=== PATIENT | female | born 1945 | race Caucasian/White ===

== ENCOUNTER 2018-06-27 05:13 | Emergency (ER) | payer MEDICARE ==
[2018-06-27] MEDS ORDERED: METHYLPREDNISOLONE PF 125MG/VIAL IVP ONE (05:21)
[2018-06-27] MEDS ORDERED: IPRATROPIUM/ALBUTEROL (0.5MG/3MG) NEB INH ONE (05:21)
--- NOTE | 2018-06-27 05:28 | Emergency Department Record ---
History of Present Illness - General Chief Complaint: Shortness of breath Stated Complaint: PALPITATIONS Time Seen by Provider: 06/27/18 05:21 Source: Patient, Family Mode of Arrival: Ambulatory Limitations: No limitations - History of Present Illness Initial Comments: 72 yo female presents with shortness of breath and a feeling of heart racing for the last 5 hours. He has a history of COPD, 2-3 PPD smoker, CAD, aneurysm. She denies any chest pain. No edema of the legs. She has a cough without any sputum. She states she has felt the symptoms since about midnight. She denies any other recent changes in her health. She is normally on 3 LNC at home. NO fevers. She felt a little warm at times but not fever. Her PCP is Jie Dickson in the [facility]. Dr Joy is her funeral professional. She has an appointment tomorrow. MD Complaint: Shortness of breath -: Hour(s) (5) Severity: Moderate Quality: Other Consistency: Constant Improves With: Nothing Worsens With: Coughing, Exertion Known History Of: COPD Context: Other Associated Symptoms: Denies other symptoms Treatments Prior to Arrival: None - Related Data Previous Rx's Medication Instructions Recorded Prednisone [Prednisone 20Mg] 20 mg PO BID #10 tab 06/27/18 Allergies Allergy/AdvReac Type Severity Reaction Status Date / Time No Known Drug Allergies Allergy Unverified 03/30/18 14:47 Review of Systems Constitutional: Reports: Chills, Weakness. Denies: Fever Eyes: Denies: Eye discharge, Vision change ENT: Denies: Congestion, Throat pain Respiratory: Reports: Dyspnea Cardiovascular: Reports: Palpitations. Denies: Chest pain, Dyspnea on exertion , Edema, Syncope Endocrine: Denies: Fatigue Gastrointestinal: Denies: Abdominal pain, Diarrhea, Nausea, Vomiting Genitourinary: Denies: Dysuria, Urgency Musculoskeletal: Denies: Arthralgia, Back pain, Myalgia Skin: Denies: Bruising, Change in color, Rash Neurological: Denies: Headache Psychiatric: Denies: Anxiety Hematological/Lymphatic: Denies: Anemia, Blood Clots, Easy bleeding, Easy bruising, Swollen glands Past Medical History - SOCIAL HISTORY Smoking Status: Current every day smoker - RESPIRATORY Hx Respiratory Disorders: Yes Hx Asthma: Yes - CARDIOVASCULAR Hx Cardio Disorders: Yes Hx Hypertension: Yes - NEURO Hx Neuro Disorders: Yes Hx Dizziness: Yes Hx Headaches: Yes - GI Hx GI Disorders: No - Hx Genitourinary Disorders: No - ENDOCRINE Hx Endocrine Disorders: No - MUSCULOSKELETAL Hx Musculoskeletal Disorders: No - PSYCH Hx Psych Problems: No - HEMATOLOGY/ONCOLOGY Hx Hematology/Oncology Disorders: Yes Hx Cancer: Yes Hx Radiation Therapy: Yes Family Medical History Hx Cancer: Father, Mother Hx Heart Disease: Mother Hx Resp Disorders: Brother/Sister Physical Exam - General General Appearance: Alert, Oriented x3, Cooperative, No acute distress Limitations: No limitations - Head Head exam: Atraumatic, Normal inspection - Eye Eye exam: Normal appearance. negative: Conjunctival injection - ENT ENT exam: Normal exam, Mucous membranes moist Ear exam: Normal external inspection Nasal Exam: Normal inspection Mouth exam: Normal external inspection - Neck Neck exam: Normal inspection, Full ROM. negative: Tenderness - Respiratory Respiratory exam: Decreased breath sounds, Prolonged expiratory, Wheezes. negative: Normal lung sounds bilaterally, Accessory muscle use, Chest wall tenderness, Respiratory distress, Rhonchi, Stridor - Cardiovascular Cardiovascular Exam: Normal rhythm, Tachycardia Peripheral Pulses: 2+: Radial (R), Radial (L) - GI/Abdominal GI/Abdominal exam: Soft. negative: Tenderness - Rectal Rectal exam: Deferred - exam: Deferred - Extremities Extremities exam: Normal inspection, Full ROM, Normal capillary refill. negative: Calf tenderness, Pedal edema, Tenderness - Back Back exam: Denies: CVA tenderness (R), CVA tenderness (L) - Neurological Neurological exam: Alert, Oriented X3 - Psychiatric Psychiatric exam: Normal affect, Normal mood - Skin Skin exam: Dry, Intact, Normal color, Warm Course - Reevaluation(s) Reevaluation #1: 0513 EKG#1 Sinus tachycardia, rate 112, intervals normal, axis normal, ST no acute changes. No changes from the prior EKG 02/04/16 06/27/18 05:28 06/27/18 05:38 The patient was checked after the Duoneb. She reports she is feeling better. Her lungs are diminished with somewhat better air movement. Mild wheeze with forced expiration 06/27/18 05:59 The labs were reviewed The CBC demonstrates chronic anemia No acute changes on the CMP The BNP is normal for age The troponin is normal 06/27/18 06:23 The patient is resting comfortably. No shortness of breath. HR improved to 102. Mild wheeze unchanged. The CXR was reviewed. No acute infiltrate. 06/27/18 06:24 Medical Decision Making - Lab Data Result diagrams: 06/27/18 05:26 06/27/18 05:26 Disposition Clinical Impression: Heart palpitations COPD (chronic obstructive pulmonary disease) Qualifiers: COPD type: unspecified COPD Qualified Code(s): J44.9 - Chronic obstructive pulmonary disease, unspecified Condition: (1) Good Instructions: COPD (Chronic Obstructive Pulmonary Disease) (ED) Additional Instructions: Follow up tomorrow as scheduled with Dr Joy Return to the ER if you have any return of your symptoms Take the Prednisone twice a day for the next 5 days Use your inhaler every 4-6 hours 2 puffs as needed Call your family doctor for a recheck this week as well Prescriptions: Prednisone [Prednisone 20Mg] 20 mg PO BID #10 tab Forms: Patient Portal Access Quality - Blood Pressure Screening Does Patient Have Any of the Following: No Blood Pressure Classification: Hypertensive Reading Systolic Measurement: 144 Diastolic Measurement: 94
[2018-06-27 05:32] LABS: BASO % 0.4 % (0-6); EOS % 2.3 % (0-6); GRAN % 68.6 % (47-80); HEMATOCRIT 34.3 % (35.0-47.0); HEMOGLOBIN 10.2 gm/dl (11.6-16.0); LYMPH % 16.8 % (16-45); MEAN CELL VOLUME 80.7 fl (81-97); MEAN CORPUSCULAR HGB CONC 29.7 g/dl (32-36); MEAN PLATELET VOLUME 9.4 fl (7.4-10.4); MONO % 11.9 % (0-9); PLATELET COUNT 467 K/uL (130-400); RED BLOOD COUNT 4.25 M/uL (3.80-5.40); RED CELL DISTRIBUTION WIDTH 21.2 % (11.5-14.5); WHITE BLOOD COUNT W/O DIFF 10.9 K/uL (4.2-12.2)
[2018-06-27 05:45] LABS: BLOOD UREA NITROGEN 8 mg/dL (8-23)
[2018-06-27 05:46] LABS: CREATININE 0.7 mg/dL (0.5-0.9); EST GLOMERULAR FILTRATION RATE > 60 mL/min; TOTAL PROTEIN 7.2 g/dL (6.6-8.7)
[2018-06-27 05:48] LABS: GLUCOSE,RANDOM 149 mg/dL (74-109)
[2018-06-27 05:51] LABS: ALB/GLOB RATIO 0.9 (1.1-1.8); ALBUMIN 3.5 g/dL (4.0-5.0); ALKALINE PHOSPHATASE 114 U/L (35-104); ALT/SGPT 15 U/L (<33); AST/SGOT 15 U/L (10.0-35.0)
--- NOTE | 2018-06-29 07:11 | RADIOLOGY REPORT ---
EXAM: CHEST, TWO VIEWS HISTORY: PALPITATIONS. TECHNIQUE: Frontal and lateral views of the chest were performed. Comparison: 02/04/16. FINDINGS: The heart size is normal. There is tortuosity of the thoracic aorta. The lungs are hyperinflated. No definitive infiltrate or pleural effusion. IMPRESSION: HYPERINFLATED LUNGS. NO DEFINITIVE INFILTRATE OR PLEURAL EFFUSION. JOB NUMBER: [id number] MTDD
== END 2018-06-27 09:22 | disposition home or self-care (01) ==
LOC: ER 05:13
DX: R00.2 Palpitations (principal); J44.9 Chronic obstructive pulmonary disease, unspecified; R06.02 Shortness of breath; I10 Essential (primary) hypertension; I25.10 Atherosclerotic heart disease of native coronary artery without angina pectoris; Z99.81 Dependence on supplemental oxygen; F17.210 Nicotine dependence, cigarettes, uncomplicated
CPT/HCPCS: 71046; 80053; 83880; 84484; 85025; 96374; 99284; J2930

== ENCOUNTER 2019-10-26 10:55 | Emergency (ER) | payer MEDICARE ==
[2019-10-26] MEDS ORDERED: 0.9 % SODIUM CHLORIDE 1,000 ML BAG IV ONE (11:16)
[2019-10-26] MEDS ORDERED: ONDANSETRON HCL IV 4 MG/2 ML VIAL IV ONE (11:16)
--- NOTE | 2019-10-26 11:25 | Emergency Department Record ---
History of Present Illness - General Chief complaint: Vomiting Stated complaint: VOMITING/DRY HEAVES/DIARRHEA Time Seen by Provider: 10/26/19 11:07 Source: Patient Mode of Arrival: Ambulatory Limitations: No limitations - History of Present Illness Initial comments: The patient is here due to a 3 day hx of intermittent nausea with vomiting and loose watery stools. She denies any abdominal pain but has had intermittent back pain. The patient has had a MARCELINO in the past and also has a hx of a AAA that is nonoperable. Now she is concerned the back pain is caused from the AAA. There has been no hx of fever, chills, CP, SOB, or ANAND. MD complaint: Diarrhea, Nausea, Vomiting Onset/Timin -: Days(s) Description of Vomiting: Watery Radiation: Back Severity scale (1-10): 7 Quality: Aching Consistency: Constant Improves with: None Worsens with: None Associated Symptoms: Nausea/vomiting - Related Data Previous Rx's Medication Instructions Recorded Cephalexin [Keflex] 500 mg PO TID #30 cap 10/26/19 Ondansetron [Zofran Odt] 4 mg SL .Q4-6H PRN #12 tab.rapdis 10/26/19 Allergies Allergy/AdvReac Type Severity Reaction Status Date / Time No Known Drug Allergies Allergy Unverified 10/18/19 14:49 Travel Screening - Travel/Exposure Within Last 30 Days Have you traveled within the last 30 days?: No Review of Systems Constitutional: Denies: Chills, Fever Eyes: Denies: Eye discharge ENT: Denies: Congestion Respiratory: Denies: Cough, Dyspnea Cardiovascular: Denies: Chest pain Endocrine: Denies: Fatigue Gastrointestinal: Reports: Diarrhea, Nausea, Vomiting Genitourinary: Denies: Dysuria Musculoskeletal: Denies: Arthralgia Skin: Denies: Bruising Past Medical History - SOCIAL HISTORY Smoking Status: Current every day smoker - RESPIRATORY Hx Respiratory Disorders: Yes Hx Asthma: Yes Hx COPD: Yes - CARDIOVASCULAR Hx Cardio Disorders: Yes Hx Hypertension: Yes - NEURO Hx Neuro Disorders: Yes Hx Dizziness: Yes Hx Headaches: Yes - GI Hx GI Disorders: No - Hx Genitourinary Disorders: No - ENDOCRINE Hx Endocrine Disorders: No - MUSCULOSKELETAL Hx Musculoskeletal Disorders: No - PSYCH Hx Psych Problems: No - HEMATOLOGY/ONCOLOGY Hx Hematology/Oncology Disorders: Yes Hx Cancer: Yes Hx Radiation Therapy: Yes Family Medical History Any Significant Family History?: Yes Hx Cancer: Father, Mother Hx Heart Disease: Mother Hx Resp Disorders: Brother/Sister Physical Exam - General General Appearance: Alert, Oriented x3, Cooperative, No acute distress - Head Head exam: Atraumatic, Normocephalic, Normal inspection - Eye Eye exam: Normal appearance, PERRL - ENT Throat exam: Normal inspection. negative: Tonsillar erythema, Tonsillar exudate - Neck Neck exam: Normal inspection, Full ROM. negative: Tenderness - Respiratory Respiratory exam: Decreased breath sounds (chronic.). negative: Normal lung sounds bilaterally, Respiratory distress - Cardiovascular Cardiovascular Exam: Regular rate, Normal rhythm, Normal heart sounds - GI/Abdominal GI/Abdominal exam: Soft, Normal bowel sounds. negative: Tenderness - Extremities Extremities exam: Normal inspection, Full ROM, Normal capillary refill. negative: Tenderness - Back Back exam: Reports: Normal inspection. Denies: Paraspinal tenderness, Vertebral tenderness - Neurological Neurological exam: Alert, Normal gait. negative: Abnormal gait, Motor sensory deficit - Psychiatric Psychiatric exam: negative: Anxious Course Vital Signs 10/26/19 11:00 Temperature 98.5 F Pulse Rate 121 H Respiratory 20 Rate Blood Pressure 137/95 Pulse Ox 94 L - Reevaluation(s) Reevaluation #1: The patient is doing a lot better at this time. She denies any nausea or pain at this time. We are waiting on the CT due to the AAA hx. 10/26/19 12:31 Reevaluation #2: The patient is doing a lot better at this time. She denies any AP, back pain, fever, vomiting, or dysuria. I did discuss the lab and CT findings with the patient. She clearly has a UTI which may be the cause of her symptoms. She is all better after the IVF and Zofran and presently she has no abdominal pain or t enderness. She is drinking fluids well with no nausea or pain and feels ready for home. The patient does have significant findings of the AAA and vascular dz but the findings are not significantly worse than the last CT dated 07/24/18. 10/26/19 14:26 Medical Decision Making - Data Complexity MDM Data: Labs Ordered and/or Reviewed, X-Ray Ordered and/or Reviewed - Lab Data Result diagrams: 10/26/19 11:25 10/26/19 11:25 - Radiology Data Radiology results: Report reviewed (Chest/Abd/Pelvis CTA: AAA, neg for any significant change from 07/24/18 study. ) Disposition Disposition: Discharge Clinical Impression: Vomiting and diarrhea Disposition: Home, Self-Care Condition: (2) Stable Instructions: Urinary Tract Infection in Women (ED), Acute Nausea and Vomiting (ED) Additional Instructions: Please continue your regular medicines and take the Keflex and Zofran as directed. Please see your heart doctor next week for recheck and bring the CT results. Please return to the ER for any worsening symptoms, pain, fever, or return of the vomiting. Prescriptions: Cephalexin [Keflex] 500 mg PO TID #30 cap Ondansetron [Zofran Odt] 4 mg SL .Q4-6H PRN #12 tab.rapdis PRN Reason: Nausea Forms: Patient Portal Access Time of Disposition: 14:31 Quality - Quality Measures Quality Measures: N/A - Blood Pressure Screening View Details: Yes Does Patient Have Any of the Following: Active Dx of HTN Blood Pressure Classification: Hypertensive Reading Systolic Measurement: 137 Diastolic Measurement: 95 Screening for High Blood Pressure: Patient Exclusion, Hx of HTN [[id number]]
[2019-10-26 11:48] LABS: ABSOLUTE NEUTROPHIL COUNT 11.33; HEMATOCRIT 40.3 % (35.0-47.0); HEMOGLOBIN 12.4 gm/dl (11.6-16.0); MEAN CELL VOLUME 89.6 fl (81-97); MEAN CORPUSCULAR HEMOGLOBIN 27.6 pg (27-33); MEAN CORPUSCULAR HGB CONC 30.8 g/dl (32-36); MEAN PLATELET VOLUME 10.7 fl (7.4-10.4); PLATELET COUNT 473 K/uL (130-400); RED CELL DISTRIBUTION WIDTH 16.3 % (11.5-14.5); WHITE BLOOD COUNT W/O DIFF 14.2 K/uL (4.2-12.2)
[2019-10-26 11:57] LABS: BLOOD UREA NITROGEN 11 mg/dL (8-23); CREATININE 0.7 mg/dL (0.5-0.9); EST GLOMERULAR FILTRATION RATE > 60 mL/min
[2019-10-26 11:58] LABS: LIPASE 24 U/L (13-60); TOTAL PROTEIN 7.9 g/dL (6.6-8.7)
[2019-10-26 12:00] LABS: GLUCOSE,RANDOM 148 mg/dL (74-109)
[2019-10-26 12:03] LABS: ALBUMIN 3.7 g/dL (4.0-5.0); ALKALINE PHOSPHATASE 123 U/L (35-104); ALT/SGPT 12 U/L (<33); AST/SGOT 12 U/L (10.0-35.0)
[2019-10-26 12:08] LABS: BILIRUBIN,DIRECT < 0.2 mg/dL (0-0.3)
[2019-10-26 14:12] LABS: URINE APPEARANCE CLEAR; URINE BILIRUBIN NEGATIVE (NEGATIVE); URINE COLOR YELLOW; URINE GLUCOSE (UA) NEGATIVE (NEGATIVE); URINE KETONE NEGATIVE (NEGATIVE)
--- NOTE | 2019-10-26 14:12 | CT ANGIOGRAM REPORT ---
EXAMINATION: CT Angiography Chest, Abdomen and Pelvis EXAM DATE: 10/26/2019 1:44 PM TECHNIQUE: ECG Gating: Cardiac. Thin spiral CT images were done from the lung apices through the isc hial tuberosities during rapid infusion of intravenous contrast. MIP 3-D reconstructions were perform ed. IV Contrast: The amount and type of contrast are recorded in the medical record. INDICATION: back pain with hx AAA. COMPARISON: None ENCOUNTER: Not applicable VASCULAR FINDINGS: Thoracic aorta: Descending thoracic aortic aneurysm 5.36 cm Abdominal Aorta: 5.8 cm juxtarenal AAA with mural thrombus. Celiac Artery: Probable significant stenosis at the origin SMA: Probable significant stenosis at origin VITALIY: Occluded Renal arteries: Probable bilateral renal artery stenosis Iliac Arteries: 4.6 cm right common iliac artery aneurysm Common Femoral Arteries: No stenosis CT CHEST FINDINGS: Base of Neck & Axillae: Not included Mediastinum & Yaneli: There is no mediastinal or hilar adenopathy. Cardiovascular: The heart has a normal size. Coronary artery calcifications There is no pericardial e ffusion. There is no evidence for right heart strain. Pulmonary Arteries: No central pulmonary emboli Tracheobronchial Structures: There is no bronchial wall thickening or bronchiectasis. Lung Parenchyma: Discoid atelectasis or scarring left base Pleural Space: There are no pleural effusions. There is no pneumothorax. Chest Wall & Musculoskeletal: No suspicious bone lesions CT ABDOMEN AND PELVIS FINDINGS: Hepatobiliary: The liver has a normal size with a smooth surface. The hepatic and portal veins appear patent. Normal gallbladder Pancreas: The pancreas is normal. Spleen: The spleen is not enlarged. Adrenals: The adrenal glands are normal. Kidneys, Ureters, & Bladder: Atrophic right kidney. 2.5 cm lower pole right renal cyst. Subcentimeter bilateral renal hypodensities too small to characterize. Both ureters have a normal caliber and the urinary bladder is unremarkable. Gastrointestinal: The stomach and small bowel are normal with no obstruction or inflammation. Appendi x not visualized. The large bowel is normal. Reproductive Organs: The uterus is absent. Lymphatic System: There is no adenopathy within the abdomen or pelvis. Peritoneum: No free fluid, free air, or inflammation Abdominal Wall & Musculoskeletal: No suspicious bone lesions. Assessment of the solid organs, soft tissues, and vascular structures is overall limited on the inclu ded early arterial phase images. IMPRESSION: 1. 5.3 cm descending thoracic aortic aneurysm 2. 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 4.6 cm right common iliac artery aneurysm 4. 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 Occluded VITALIY 6. Upper thorax not included 7. Coronary artery disease 8. Discoid atelectasis or scarring left base 9. Atrophic right kidney. 2.5 cm right renal cyst. Subcentimeter hypodensities bilateral kidneys too small to characterize 10. Hysterectomy Dictated by: Vignesh Montano MD on 10/26/2019 1:56 PM. .
[2019-10-26 14:13] LABS: URINE BLOOD SMALL (NEGATIVE); URINE LEUKOCYTE ESTERASE NEGATIVE (NEGATIVE); URINE NITRITE POSITIVE (NEGATIVE); URINE UROBILINOGEN 0.2 E.U./dL (0.20 - 1.00)
[2019-10-26 14:19] LABS: URINE BACTERIA 4+
[2019-10-26] MEDS ORDERED: CEFTRIAXONE 1GM/50ML BAG 1 GM/50 ML BAG IVPB ONE (14:23)
[2019-10-26] MEDS ORDERED: ACETAMINOPHEN 325 MG TAB PO ONE (14:32)
[2019-10-26] MEDS ORDERED: KETOROLAC 30 MG/ML VIAL IVP ONE (14:33)
== END 2019-10-26 15:09 | disposition home or self-care (01) ==
LOC: ER 10:55
DX: R11.2 Nausea with vomiting, unspecified (principal); R19.7 Diarrhea, unspecified; N39.0 Urinary tract infection, site not specified; I71.2 Thoracic aortic aneurysm, without rupture; I71.4 Abdominal aortic aneurysm, without rupture; I10 Essential (primary) hypertension; F17.210 Nicotine dependence, cigarettes, uncomplicated; J44.9 Chronic obstructive pulmonary disease, unspecified
CPT/HCPCS: 71275; 74174; 80048; 80076; 81001; 83690; 85027; 96361; 96365; 96375; 99284; J0696; J1885; J2405; J7030